=== PATIENT | female | born 1985 | race American Indian/Alaskan Native ===

== ENCOUNTER 2018-06-23 10:05 | Outpatient (CLI) | payer OTHER ==
--- NOTE | 2018-06-23 15:46 | Ultrasound Report ---
BILATERAL DIGITAL DIAGNOSTIC MAMMOGRAM with CAD and BILATERAL BREAST ULTRASOUND: 06/23/18 CLINICAL: Right upper breast lump. COMPARISON:None. These are baseline studies. FINDINGS: The breasts are heterogeneously dense, which may obscure small masses and breast density is sufficient to limit the sensitivity of mammography.Bilateral parenchymal asymmetries demonstrate satisfactory effacement with spot compression.. Ultrasound of the right breast (including all four quadrants and the retroareolar area) was performed and demonstrated a benign anechoic cyst at 10 o'clock 4 cm from the nipple measuring 3.3 x 3.8 x 2.4 cm. A benign cyst at 8 o'clock 6 cm from the nipple measures 1.7 x 1.9 the 1.4 cm. A benign cyst at 8 o'clock 4 cm from the nipple measures 1.6 x 0.8 x 2.0 cm. A complex cyst versus solid oval smooth mass at 8 o'clock 5 cm from the nipple measures 6 x 4 by 7 mm. A complex cyst at 3 o'clock 2 cm from the nipple measures 7 x 4 x 7 mm. A complex cyst at 2 o'clock 3 cm from the nipple measures 5 x 4 x 7 mm. Ultrasound of the left breast (including all four quadrants and the retroareolar area) was performed and demonstrated several probably benign complex cyst. An irregular complex cyst at 12 o'clock 3 cm from the nipple measures 1.0 x 0.6 x 0.9 cm. A benign cyst at 2 o'clock 3 cm from the nipple measures 1.5 x 0.8 x 1.6 cm. A complex cyst at 6 o'clock near the nipple measures 8 x 6 x 4 mm. IMPRESSION: Bilateral benign cysts and several bilateral probably benign complex cyst. BI-RADS CATEGORY: 3 - - Probably Benign RECOMMENDATION: 6 month followup bilateral breast ultrasound to reevaluate the bilateral complex cysts and complex cyst versus solid mass of the right breast. ACR BI-RADS MAMMOGRAPHIC CODES: 0 = Needs additional imaging evaluation; 1 = Negative; 2 = Benign; 3 = Probably benign; 4 = Suspicious; 5 = Malignant; 6 = Known biopsy-proven malignancy COMMENT: 1. Dense breast tissue, i.e., adenosis, fibrocystic changes, etc., may obscure an underlying neoplasm. 2. Approximately 10% of cancers are not detected with mammography. 3. A negative mammography report should not delay biopsy if a clinically suspicious mass is present. COMMENT: Patient follow-up letters are generated by our [employer] application.
== END 2018-06-23 10:06 | disposition home or self-care (01) ==
LOC: MAMMO 10:05
PROVIDERS: ATTEND Family Medicine
DX: N60.01 Solitary cyst of right breast (principal); N60.02 Solitary cyst of left breast; Z88.0 Allergy status to penicillin; Z88.2 Allergy status to sulfonamides; Z91.040 Latex allergy status
CPT/HCPCS: 77066